=== PATIENT | female | born 1955 | race Caucasian/White ===

== ENCOUNTER 2023-10-25 10:26 | Emergency (ER) | payer MEDICARE, OTHER | END 2023-10-25 12:54 | disposition home or self-care (01) | LOC: EDBD 10:26 → JP.ED 10:26 | DX: S92.352A Displaced fracture of fifth metatarsal bone, left foot, initial encounter for closed fracture (principal); Z86.16 Personal history of COVID-19; X58.XXXA Exposure to other specified factors, initial encounter | CPT/HCPCS: 73630-26-LT; 73630-LT; 99283 ==